=== PATIENT | male | born 1950 | race Caucasian/White ===

== ENCOUNTER 2018-10-01 15:06 | Emergency (ER) | payer OTHER ==
[~2018-10-01] VITALS: Ht 185.4 cm; Wt 93.2 kg
[2018-10-01 15:09] VITALS: Ht 185.4 cm; Wt 93.2 kg
[2018-10-01] MEDS ORDERED: AUGMENTIN 875-11 TAB PO (15:11)
[2018-10-01] MEDS ORDERED: XALATAN 0.0052.5 ML EACH EYE (15:11)
[2018-10-01] MEDS ORDERED: BUPROPION HCL100 MG PO (15:11)
[2018-10-01] MEDS ORDERED: VIBRAMYCIN 100100 MG PO (16:20)
[2018-10-01] MEDS ORDERED: SYMBICORT 16010.2 GM INH (16:20)
[2018-10-01 17:04] VITALS: BP 137/83
== END 2018-10-01 17:00 | disposition home or self-care (01) ==
LOC: D.ER 15:06
DX: J44.1 Chronic obstructive pulmonary disease with (acute) exacerbation (principal)